=== PATIENT | male | born 1935 | race Caucasian/White ===

== ENCOUNTER → 2022-03-31 12:54 | Outpatient (BNVA) | payer MEDICARE, SELFPAY | PROVIDERS: Family Provider Physician Assistant Medical; PCP Family Medicine; Visit Provider Internal Medicine | DX: I25.10 Atherosclerotic heart disease of native coronary artery without angina pectoris (principal); I49.5 Sick sinus syndrome; E78.5 Hyperlipidemia, unspecified; Z87.891 Personal history of nicotine dependence; I10 Essential (primary) hypertension; Z95.0 Presence of cardiac pacemaker | CPT/HCPCS: 93005; 99204 ==

== ENCOUNTER → 2022-07-23 08:42 | Outpatient (BNVA) | payer MEDICARE, SELFPAY | PROVIDERS: Family Provider Physician Assistant Medical; PCP Family Medicine; Visit Provider Nurse Practitioner Family | DX: I25.10 Atherosclerotic heart disease of native coronary artery without angina pectoris (principal); I10 Essential (primary) hypertension; Z95.0 Presence of cardiac pacemaker; Z87.891 Personal history of nicotine dependence; Z79.82 Long term (current) use of aspirin | CPT/HCPCS: 99214 ==

== ENCOUNTER → 2022-08-26 15:10 | Outpatient (BNVA) | payer MEDICARE, SELFPAY | PROVIDERS: Family Provider Physician Assistant Medical; PCP Family Medicine; Visit Provider Internal Medicine | DX: I25.10 Atherosclerotic heart disease of native coronary artery without angina pectoris (principal); E78.5 Hyperlipidemia, unspecified; Z87.891 Personal history of nicotine dependence; Z95.0 Presence of cardiac pacemaker; I10 Essential (primary) hypertension | CPT/HCPCS: 99214 ==

== ENCOUNTER 2022-09-20 12:35 | Outpatient (CLI) | payer MEDICARE, SELFPAY ==
--- NOTE | 2022-09-20 13:00 | USCV_ITS ---
Sae Hoskins Age: 87 Gender: M : 1935 Exam Date: 09/20/2022 13:21 Ordering Phys: Jaswinder Hines M.D ([email or web address]) Technologist: Fang Sinha [place] [facility] [place]: cp, sob BP: 137 / 87 HR: 71 Rhythm: Sinus Technical Quality: Fair MEASUREMENTS (Male / Female) Normal Values 2D ECHO LV Diastolic Diameter PLAX 3.0 cm 4.2 - 5.9 / 3.9 - 5.3 cm LV Systolic Diameter PLAX 2.3 cm IVS Diastolic Thickness 1.1 cm 0.6 - 1.0 / 0.6 - 0.9 cm IVS Systolic Thickness 2.1 cm LVPW Diastolic Thickness 1.1 cm 0.6 - 1.0 / 0.6 - 0.9 cm LVPW Systolic Thickness 1.7 cm LV Ejection Fraction 2D Teich 46.6 % LV Ejection Fraction MOD 2C 74.9 % LV Ejection Fraction 2C AL 76.9 % LA Diameter 3.2 cm LA Width 3.8 cm LA Height 5.1 cm RA Width 3.5 cm RA Height 4.8 cm Aorta at Sinotubular Diameter 3.1 cm IVC Diameter 1.3 cm M-MODE Aortic Annulus Diameter 3.3 cm MV E Point Septal Separation 0.6 cm DOPPLER AV Peak Velocity 94.0 cm/s LVOT Peak Velocity 91.0 cm/s MV Peak Velocity 80.0 cm/s MV Area PHT 3.2 cm squared Mitral E to A Ratio 0.7 MV E' Velocity 30.0 cm/s Mitral E to MV E' Ratio 11.3 Mitral E to LV E' Lateral Ratio 9.3 Mitral E to LV E' Septal Ratio 14.2 TR Peak Velocity 81.7 cm/s TR Peak Gradient 2.7 mmHg Right Atrial Pressure 5.0 mmHg Pulmonary Artery Systolic Pressu 7.7 mmHg PV Peak Velocity 68.0 cm/s RV Acceleration Time 0.1 s RV Ejection Time 0.3 s RV AcT/ET 0.3 FINDINGS Left Ventricle Technically limited quality echocardiogram because of poor ultrasonic windows. LV systolic function is mildly reduced with EF of 40 to 45%. Mild global hypokinesis seen. Grade 1 diastolic dysfunction Right Ventricle Grossly normal Right Atrium Well-visualized Left Atrium Not well-visualized Mitral Valve Grossly normal. Mild mitral regurgitation. Aortic Valve Grossly normal. No significant stenosis or regurgitation is seen. Tricuspid Valve Grossly normal. Insufficient TR jet to calculate RVSP. Pulmonic Valve Not visualized Pericardium Normal Aorta Normal in size IVC Appears to be normal CONCLUSIONS LV systolic function is mildly reduced with EF of 40 to 45%. Grade 1 diastolic dysfunction Mild mitral regurgitation No comparison studies are available. Jaswinder Hines MD (Electronically Signed) Final Date: 25 September 2022 15:22 S
== END 2022-09-20 12:36 | disposition home or self-care (01) ==
PROVIDERS: PCP Family Medicine; Visit Provider Internal Medicine
DX: R06.02 Shortness of breath (principal); R07.9 Chest pain, unspecified; I34.0 Nonrheumatic mitral (valve) insufficiency; I51.89 Other ill-defined heart diseases
CPT/HCPCS: 93306

== ENCOUNTER → 2022-11-02 16:33 | Outpatient (BNVA) | payer MEDICARE, SELFPAY | PROVIDERS: PCP Family Medicine; Visit Provider Internal Medicine | DX: Z45.010 Encounter for checking and testing of cardiac pacemaker pulse generator [battery] (principal) | CPT/HCPCS: 93296 ==

== ENCOUNTER 2022-11-05 08:41 | Outpatient (CLI) | payer MEDICARE, SELFPAY ==
--- NOTE | 2022-11-05 | ECG_ITS ---
[facility] Test Date: 2022-11-05 Pat Name: Sae Hoskins Department: Room: Gender: Male [employer] Cook: : 1935 Requested By: Jsawinder Hines Order Number: [id number] Kevin MD: Jaswinder Hines M.D. Interpretive Statements NAME OF STUDY: LEXISCAN SESTAMIBI STRESS TEST INDICATION: [Chest Pain, ] Procedure: At the baseline, the blood pressure was 135/81 mmHg with a heart rate of 63 bpm. The electrocardiogram showed normal sinus rhythm, left bundle branch block with normal ST and T's. The Lexiscan was infused over a period of 20 seconds. A total of 0.4 mg of Lexiscan was infused. The stress phase was continued for a total of 5 minutes. Heart rate was at the end of stress phase was 67 bpm and a blood pressure of 89/53 mmHg. The EKG at the peak infusion revealed normal sinus rhythm with no significant ST-T wave changes. Sestamibi was injected 20 seconds after the Lexiscan infusion. Blood pressure at the end of recovery phase was 94/50 mmHg with a heart rate of 66 bpm. Conclusion: 1. Normal EKG response to Lexiscan infusion 2. No Lexiscan induced chest pain or cardiac arrhythmia. 3. Normal blood pressure and heart rate response. 4. Sestamibi/sestamibi perfusion scan pending; see separate report. Electronically Signed On 11-23-2022 11:07:30 CDT by Jaswinder Hines M.D. [id number]
[2022-11-05 09:31] VITALS: BMI 28.0
--- NOTE | 2022-11-05 09:34 | NMCV_ITS ---
NM lisette perf SPECT r/s* [id number] Sae Hoskins Age: 87 Gender: M : 1935 Exam Date: 11/05/2022 10:25 Ordering Phys: Jaswinder Hines M.D ([email or web address]) Technologist: ANNIE Dean Exam Location: [facility] [place] Indications: CHEST PAIN STRESS TEST [facility] IMAGE PROTOCOL Rest/Stress 1 Lexiscan Day Radiopharmaceutical Dose (mCi) Administration Site Administered by Rest: Tc-99m 10.9 IV ANNIE Dean Sestamibi Stress:Tc-99m 32.9 IV ANNIE Dean Sestamibi Rest: 05-Nov-2022 60 Discovery 630 Stress: 05-Nov-2022 30 Discovery 630 0.4mg Lexiscan. Supine position only as patient was unable to lay prone. SPECT RESULTS Technical Quality: Excellent Raw Data Analysis: Normal Image Corrections: No attenuation or motion correction applied Summed Stress Score: 1 Summed Rest Score: 2 Summed Difference Score: 1 PERFUSION FINDINGS There is a small sized, partially reversible perfusion defect noted in inferior wall. This is consistent with small sized prior infarct with minimal precious- infarct ischemia in RCA territory FUNCTIONAL RESULTS (calculated via Gated SPECT) Stress Image LV EF (%): 76 Stress EDV (mL):75 TID: 0.98 Stress ESV (mL):18 FUNCTIONAL FINDINGS: There is normal left ventricular systolic function. IMPRESSIONS 1. 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 LV systolic function is normal Jaswinder Hines MD (Electronically Signed) Final Date: 07 November 2022 11:58 S
[2022-11-05] MEDS: regadenoson 0.4 Mg/5 ml Syringe IVP (10:59)
[2022-11-05 11:23] VITALS: BP 94/50; PULSE 65
== END 2022-11-05 08:42 | disposition home or self-care (01) ==
PROVIDERS: PCP Family Medicine; Visit Provider Internal Medicine
DX: R07.9 Chest pain, unspecified (principal)
CPT/HCPCS: 36415; 78452; 93017; 96375; A9500; J2785

== ENCOUNTER → 2022-11-15 10:27 | Outpatient (BNVA) | payer MEDICARE, SELFPAY | PROVIDERS: PCP Family Medicine; Referring Provider Internal Medicine; Visit Provider Nurse Practitioner Family | DX: I25.10 Atherosclerotic heart disease of native coronary artery without angina pectoris (principal); I10 Essential (primary) hypertension; Z95.0 Presence of cardiac pacemaker; Z87.891 Personal history of nicotine dependence | CPT/HCPCS: 99214 ==

== ENCOUNTER → 2023-02-03 14:18 | Outpatient (BNVA) | payer MEDICARE, SELFPAY | PROVIDERS: PCP Family Medicine; Visit Provider Nurse Practitioner Family | DX: I50.9 Heart failure, unspecified (principal); Z95.0 Presence of cardiac pacemaker; Z95.5 Presence of coronary angioplasty implant and graft | CPT/HCPCS: 36415; 71046; 80048; 83880; 99214 ==

== ENCOUNTER → 2023-03-03 14:30 | Outpatient (BNVA) | payer MEDICARE, SELFPAY | PROVIDERS: PCP Family Medicine; Visit Provider Nurse Practitioner Family | DX: I11.0 Hypertensive heart disease with heart failure (principal); I50.41 Acute combined systolic (congestive) and diastolic (congestive) heart failure; I25.10 Atherosclerotic heart disease of native coronary artery without angina pectoris; Z87.891 Personal history of nicotine dependence | CPT/HCPCS: 36415; 80048; 83880; 99214 ==

== ENCOUNTER → 2023-03-14 15:07 | Outpatient (BNVA) | payer MEDICARE, SELFPAY | PROVIDERS: PCP Family Medicine; Visit Provider Internal Medicine | DX: I49.5 Sick sinus syndrome (principal); I25.10 Atherosclerotic heart disease of native coronary artery without angina pectoris; E78.5 Hyperlipidemia, unspecified; Z87.891 Personal history of nicotine dependence; Z79.82 Long term (current) use of aspirin; I10 Essential (primary) hypertension | CPT/HCPCS: 99214 ==

== ENCOUNTER → 2023-06-13 10:48 | Outpatient (BNVA) | payer MEDICARE, SELFPAY | PROVIDERS: PCP Family Medicine; Visit Provider Nurse Practitioner Family | DX: I25.10 Atherosclerotic heart disease of native coronary artery without angina pectoris (principal); I10 Essential (primary) hypertension; Z95.0 Presence of cardiac pacemaker; Z87.891 Personal history of nicotine dependence | CPT/HCPCS: 99214 ==

== ENCOUNTER 2023-08-01 09:34 | Emergency (ER) | payer MEDICARE, SELFPAY ==
[2023-08-01] VITALS (44 sets, daily range): BP systolic 92–152; BP diastolic 58–82; PULSE 60–75; RESP 15–28; TEMP 36.9; O2SAT 89–95
--- NOTE | 2023-08-01 09:36 | ED_ITS ---
HPI - Fall General: Stated Complaint: Fall/ Foot Pain Time Seen by Provider: 08/01/23 09:36 COUNTS INCLUDE 234 BEDS AT THE [facility] ED PFSH: Medical History Pacemaker Sick sinus syndrome HTN (hypertension) CAD (coronary artery disease) BPH (benign prostatic hyperplasia) Prostate cancer Hyperlipemia Social History Smoking and tobacco/nicotine status: former use of tobacco/nicotine Alcohol intake: former Discharge Plan Discharge Condition: Stable Prescriptions: No Action fluticasone propionate 50 mcg/actuation spray,suspension 2 spray intranasal DAILY Rx Instructions: administer into each nostril gabapentin 300 mg capsule 300 mg PO BID tamsulosin [Flomax] 0.4 mg capsule 0.4 mg PO DAILY simvastatin [Zocor] 10 mg tablet 10 mg PO DAILY enalapril maleate [Vasotec] 2.5 mg tablet 2.5 mg PO DAILY Hold Instructions: hypotension sertraline [Zoloft] 25 mg tablet 25 mg PO DAILY memantine [Namenda] 5 mg tablet 5 mg PO QAM montelukast [Singulair] 10 mg tablet 10 mg PO DAILY esomeprazole magnesium [Nexium] 40 mg capsule,delayed release(DR/EC) 40 mg PO DAILY timolol maleate 0.5 % drops 1 drp ophthalmic (eye) BID acetaminophen [Tylenol Extra Strength] 500 mg tablet 500 mg PO Q6H PRN bismuth subsalicylate [Pepto-Bismol] 262 mg tablet,chewable 2 tab PO QID cetirizine [Zyrtec] 10 mg tablet 10 mg PO DAILY PRN ibuprofen 200 mg tablet 200 mg PO Q6H PRN brimonidine 0.2 % drops 1 drp ophthalmic (eye) BID Rx Instructions: administer approximately 8 hours apart nitroglycerin 0.4 mg tablet, sublingual 0.4 mg sublingual Q5M PRN Rx Instructions: do not exceed 3 doses per episode multivitamin Tablet 1 tab PO DAILY aspirin 81 mg tablet,delayed release (DR/EC) 81 mg PO DIRECTED Rx Instructions: Every other day metoprolol tartrate 25 mg tablet 12.5 mg PO BID furosemide [Lasix] 20 mg tablet 20 mg PO DIRECTED Rx Instructions: 1 tab every other day Referrals: Harrison Forman [Primary Care Provider] - Coding Level of Care Code ED Museum Tour Guide for Chg Valente
--- NOTE | 2023-08-01 09:48 | ECG_ITS ---
[facility] Test Date: 2023-08-01 Pat Name: Sae Hoskins Department: Room: Gender: Male Utility Driver: : 1935 Requested By: Elmira Marin Order Number: [id number] Brown MD: Agatha Crowe M.D. Measurements Intervals [place] Rate: 62 P: 102 NE: 177 QRS: 23 QRSD: 170 T: 71 QT: 464 QTc: 475 Interpretive Statements ELECTRONIC ATRIAL PACEMAKER ELECTRONIC VENTRICULAR PACEMAKER ABNORMAL RHYTHM ECG No previous ECG available for comparison Electronically Signed On 08-01-2023 22:52:37 CDT by Agatha Crowe M.D. [email or web address] d/b/a [email or web address] doctors [email or web address]/store/OM/[id number]
--- NOTE | 2023-08-01 09:48 | XR_ITS ---
WS: [id number] XR foot LT min 3V* [id number] REASON FOR EXAM: injury FINDINGS: Significant decrease in bone density. Moderate joint space narrowing with subchondral sclerosis and PIP and DIP joints. There is a deformity of the distal most fifth metatarsal which most likely represents a healing fract ure, nondisplaced. XR/XR foot LT min 3V* [id number] IMPRESSION: Probable healing fracture left fifth metatarsal as above.
--- NOTE | 2023-08-01 09:48 | XR_ITS ---
WS: [id number] XR chest 1V portable [id number] REASON FOR EXAM: syncope FINDINGS: The chest appears unchanged compared to 02/03/2023. Cardiac device over the left chest with trans the subclavian vein leads to the right atrium and right ventricle. Mild tortuosity of the thoracic aorta. Moderate cardiomegaly. Calcified granulomatous disease in both hemithoraces. No acute pulmonary parenchymal or pleural abnormality is identified. Moderate degenerative spondylosi s in the mid and lower thoracic spine. Old posttraumatic change in the left shoulder joint. 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 XR/XR chest 1V portable [id number] IMPRESSION: Stable chest without acute abnormality.
--- NOTE | 2023-08-01 09:49 | ED_ITS ---
HPI - General Adult 2 General: Chief complaint: Extremity Injury, Lower Stated complaint: Fall/ Foot Pain Time Seen by Provider: 08/01/23 09:36 Source: patient and family () Mode of arrival: EMS Limitations: other (dementia) History of Present Illness: Patient is an 87-year-old male with a history of CHF, HTN, dementia here via EMS for evaluation of a left foot injury. History is difficult to obtain from patient given his dementia but arrives shortly after his arrival to provide history. She states over the past 2 weeks or so when patient first wakes up in the morning he will have lightheadedness/dizziness and sometimes will blackout for a few seconds after standing. states he is fine the remainder of the day. She states yesterday he got lightheaded and dizzy and fell to his knees and injured his left foot as the noticed blood coming from his pinky toe. She states this morning when she tried to get him up he would not put pressure on the foot thus prompting her to call EMS. They did have an appointment with primary care this morning for evaluation of the lightheadedness/dizziness. Onset (ago): day(s) (yesterday-injured foot) Location: lower extremity Severity: moderate Pain Consistency: constant Relieving factors: immobilization Exacerbating factors: other (palpation, walking) Associated symptoms: Reports other (lightheadedness/syncope with standing first thing in the morning) Treatments prior to arrival: none Review of Systems 2 General: Reports: ROS unobtainable due to mental status (patient has chronic dementia) PFS ED 2 PFSH: Medical History Pacemaker Sick sinus syndrome HTN (hypertension) CAD (coronary artery disease) BPH (benign prostatic hyperplasia) Prostate cancer Hyperlipemia Social History Smoking and tobacco/nicotine status: former use of tobacco/nicotine Alcohol intake: former Physical Exam 2 Const: COMMON NORMALS: no acute distress, average body habitus, healthy appearing, alert and well nourished EXAM LIMITATIONS: altered mental status (chronic dementia- states is at mental baseline) HENMT: COMMON NORMALS: normocephalic and atraumatic HEAD & SCALP: normal to inspection, normocephalic and atraumatic FACE & SINUS: normal facial exam and face symmetric Resp: COMMON NORMALS: normal respiratory effort and clear to auscultation bilaterally AUSCULTATION: clear to auscultation bilaterally Cardio: COMMON NORMALS: regular rate and regular rhythm RATE: regular rate RHYTHM: regular rhythm Back/Pelvis: COMMON NORMALS: thoracic and lumbar spine normal to inspection Extremity: COMMON NORMALS: full ROM, capillary refill normal, no joint enlargement and no calf tenderness GENERAL: Yes normal exam except as noted LEFT LOWER EXTREMITY: Yes foot & digits (edema/ecchymosis dorsal L foot) Left foot and digits: Yes inspection (small laceration plantar L 5th digit), Yes ROM (normal) and Yes neurovascular exam (normal) Neuro: COMMON NORMALS: moves all extremities, no focal motor deficits and no sensory deficits noted SENSORIUM/ORIENTATION: Yes alert Course 2 Vital Signs: Vital signs: Vital Signs Temperature 98.4 F 08/01/23 09:36 Pulse Rate 62 08/01/23 13:15 Respiratory Rate 17 08/01/23 13:15 Blood Pressure 129/67 08/01/23 13:30 Pulse Oximetry 95 08/01/23 13:15 Oxygen Delivery Me thod Room Air 08/01/23 10:14 [facility] - General Adult Medical Decision Making Patient is an 87-year-old male who presents to the ED today here with his for a main complaint of an injury to his left foot that he sustained yesterday. On exam he has a small laceration to the crease of the plantar aspect of his left pinky toe. This wound is now 24 hours old so decision was made to leave open. With the natural flexion of the toe it provides adequate wound closure on its own. Wound was cleaned and dressed. XR reading a probable healing fracture although history would suggest this is acute. Will place on antibiotics and he will follow-up with podiatry. Tetanus was updated. states he has been having lightheadedness/dizziness/presyncopal episodes with standing mainly in the mornings over the past 2 to 3 weeks. He had orthostatic hypotension here. We discussed the rule of fives . Recommend he follow-up with his primary care provider to see if they need to adjust any of his hypertensive medications. Remainder of workup is nonactionable. Lab Data 08/01/23 10:55 08/01/23 10:55 Radiology Impressions Chest X-Ray 08/01/23 09:48 IMPRESSION: Stable chest without acute abnormality. Foot X-Ray 08/01/23 09:48 IMPRESSION: Probable healing fracture left fifth metatarsal as above. Laboratory Results WBC 8.95 10^3/uL (3.29-11.43) 08/01/23 10:55 RBC 4.75 10^6/uL (3.85-5.65) 08/01/23 10:55 Hgb 15.40 g/dL (11.27-16.99) 08/01/23 10:55 Hct 44.2 % (37-53) 08/01/23 10:55 MCV 93.1 fl (82-101) 08/01/23 10:55 MCH 32.4 pg (27-33) 08/01/23 10:55 MCHC 34.8 g/dL (30-55) 08/01/23 10:55 RDW 13.8 % (12.1-15.1) 08/01/23 10:55 Plt Count 108 10^3/cmm (157-399) L 08/01/23 10:55 MPV 13.8 fL (7.4-10.4) H 08/01/23 10:55 Neut % (Auto) 68.0 % 08/01/23 10:55 Lymph % (Auto) 16.4 % 08/01/23 10:55 [place] % (Auto) 13.3 % 08/01/23 10:55 Eos % (Auto) 1.6 % 08/01/23 10:55 Baso % (Auto) 0.4 % 08/01/23 10:55 Neut # (Auto) 6.08 10^3/uL (1.8-7.7) 08/01/23 10:55 Lymph # (Auto) 1.5 10^3/uL (0.8-4.8) 08/01/23 10:55 [place] # (Auto) 1.2 10^3/uL (0.2-0.9) H 08/01/23 10:55 Eos # (Auto) 0.1 10^3/uL (0.0-0.8) 08/01/23 10:55 Baso # (Auto) 0.0 10^3/uL (0.0-0.1) 08/01/23 10:55 Nucleated RBC % (auto) 0 % 08/01/23 10:55 Nucleated RBCs # 0.0 /100WBC 08/01/23 10:55 Sodium 141 mmol/L (136-145) 08/01/23 10:55 Potassium 4.8 mmol/L (3.5-5.1) 08/01/23 10:55 Chloride 104 mmol/L (98-107) 08/01/23 10:55 Carbon Dioxide 26 mmol/L (22-29) 08/01/23 10:55 Anion Gap 15.8 (5-19) 08/01/23 10:55 BUN 18 mg/dL (8-23) 08/01/23 10:55 Creatinine 1.2 mg/dL (0.7-1.2) 08/01/23 10:55 GFR Calculation Not Reportable 08/01/23 10:55 Glucose 130 mg/dL (65-115) H 08/01/23 10:55 Calculated Osmolality 296 mOsm/kg (285-295) H 08/01/23 10:55 Calcium 9.4 mg/dL (8.5-10.5) 08/01/23 10:55 Total Bilirubin 1.5 mg/dL (0.15-1.2) H 08/01/23 10:55 AST 19 U/L (0-40) 08/01/23 10:55 ALT 10 U/L (0-41) 08/01/23 10:55 Alkaline Phosphatase 123 U/L (40-130) 08/01/23 10:55 NT-Pro-B Natriuret Pep 349 pg/mL (0-450) 08/01/23 10:55 Total Protein 5.5 g/dL (6.6-8.7) L 08/01/23 10:55 Albumin 3.6 g/dL (3.5-5.2) 08/01/23 10:55 Globulin 1.9 g/dL (1.3-4.6) 08/01/23 10:55 Urine Color Yellow (Yellow) 08/01/23 10:43 Urine Appearance Clear (CLEAR) 08/01/23 10:43 Urine pH 7 (5-7) 08/01/23 10:43 Ur Specific [place] 1.010 (1.005-1.030) 08/01/23 10:43 Urine Protein Neg (Negative) 08/01/23 10:43 Urine Glucose (UA) Norm (Normal) 08/01/23 10:43 Urine Ketones Negative (Negative) 08/01/23 10:43 Urine Blood Neg (Negative) 08/01/23 10:43 Urine Nitrate Negative (Negative) 08/01/23 10:43 Urine Bilirubin Neg (Negative) 08/01/23 10:43 Urine Urobilinogen Neg mg/dL (Negative) 08/01/23 10:43 Ur Leukocyte Esterase Negative (Negative) 08/01/23 10:43 All radiology interpretation(s) finalized by discharge Discharge Plan Discharge Patient Disposition: Home Clinical Impression: Fracture of distal phalanx of toe of left foot, Orthostatic hypotension Condition: Stable Prescriptions: New cephalexin 500 mg capsule 500 mg PO Q6H 7 Days Qty: 28 0RF No Action fluticasone propionate 50 mcg/actuation spray,suspension 2 spray intranasal DAILY Rx Instructions: administer into each nostril gabapentin 300 mg capsule 300 mg PO BID tamsulosin [Flomax] 0.4 mg capsule 0.4 mg PO DAILY simvastatin [Zocor] 10 mg tablet 10 mg PO QPM montelukast [Singulair] 10 mg tablet 10 mg PO QPM esomeprazole magnesium [Nexium] 40 mg capsule,delayed release(DR/EC) 40 mg PO DAILY timolol maleate 0.5 % drops 1 drp ophthalmic (eye) BID cetirizine [Zyrtec] 10 mg tablet 10 mg PO DAILY PRN (Reason: allergies) brimonidine 0.2 % drops 1 drp ophthalmic (eye) BID Rx Instructions: administer approximately 8 hours apart nitroglycerin 0.4 mg tablet, sublingual 0.4 mg sublingual Q5M PRN (Reason: Chest Pain) Rx Instructions: do not exceed 3 doses per episode multivitamin Tablet 1 tab PO QPM aspirin 81 mg tablet,delayed release (DR/EC) 81 mg PO DIRECTED Rx Instructions: Every other day metoprolol tartrate 25 mg tablet 12.5 mg PO BID furosemide [Lasix] 20 mg tablet See Rx Instructions .ROUTE .COMPLEX Rx Instructions: TAKE 1 TABLET BY MOUTH TWICE DAILY AND NEEDED. metformin 500 mg tablet extended release 24 hr 500 mg PO DAILY sertraline 50 mg tablet 50 mg PO DAILY memantine 10 mg tablet 10 mg PO BID Discharge Orders: Discharge ED (Routine); Ordered 08/01/23 Ordered By: Elmira Marin Referrals: Harrison Forman [Primary Care Provider] - Patient Instructions: Syncope (DC), Hypotension (DC) Activity Restrictions/Additional Instructions: As we discussed keep wound underneath the toe clean with warm soapy water and monitor for signs of infection. I have called antibiotics into your pharmacy of choice. Please start these immediately. We will have him follow-up with podiatry. He needs to stay in his surgical shoe is much as possible during ambulation. We discussed the rule of 5s to help with his positional low blood pressure. When he goes from a lying to seated position he needs to stay like this for approximately 5 minutes to allow blood pressure to adjust. When he goes from a seated to standing position he again needs to stay upright for approximately 5 minutes before he starts to ambulate. This can help prevent falls/lightheadedness or dizziness. Please discuss with his primary care as they may need to adjust some of his blood pressure medication. Coding Level of Care Code ED Grinder Setup Operator for Gus Victor
[2023-08-01 10:50] LABS: Add Urine Microscopic? NO; Charge for UA Resulting for Rev
[2023-08-01 10:53] LABS: Bilirubin Urine Neg (Negative); Blood Urine Neg (Negative); Glucose Urine UA Norm (Normal); Ketones Urine Negative (Negative); Leukocyte Esterase Urine Negative (Negative); Nitrate Urine Negative (Negative); Protein Urine Neg (Negative); Urine Appearance Clear (CLEAR); Urine Color Yellow (Yellow); Urobilinogen Urine Neg (Negative); pH Urine 7 (5-7)
[2023-08-01 11:04] LABS: Basophils % 0.4 %; Eosinophils # 0.1 10^3/uL (0.0-0.8); Eosinophils % 1.6 %; Hematocrit 44.2 % (37-53); Lymphocytes # 1.5 10^3/uL (0.8-4.8); Lymphocytes % 16.4 %; Mean Corpuscular HGB Conc 34.8 g/dL (30-55); Mean Corpuscular Hemoglobin 32.4 pg (27-33); Mean Corpuscular Volume 93.1 fl (82-101); Mean Platelet Volume 13.8 fL (7.4-10.4); Monocytes # 1.2 10^3/uL (0.2-0.9); Monocytes % 13.3 %; Neutrophils # 6.08 10^3/uL (1.8-7.7); Nucleated Red Blood Cells % 0 %; Platelet Count 108 10^3/cmm (157-399); Red Blood Count 4.75 10^6/uL (3.85-5.65); Red Cell Distribution Width 13.8 % (12.1-15.1); White Blood Count 8.95 10^3/uL (3.29-11.43)
[2023-08-01 11:19] LABS: Slide Review Slide Review Perform
--- NOTE | 2023-08-01 11:39 | PC.NURSE ---
WHILE ATTEMPTING TO PREFORM ORTHOSTATIC VITAL SIGNS AND ASSISTING THE PATIENT TO STAND UP, PT BEGAN TO COLLAPSE AND HAD POSITIVE LOC. THIS NURSE WAS ABLE TO LAY PT DOWN BACK ONTO STRETCHER WITH NO INCIDENT. PT BECAME ALERT APPROXIMATELY 30 SECONDS LATER. UNABLE TO OBTAIN BP AT THE TIME BUT WAS 142/75 A FEW MOMENTS LATER. PT PULSE WAS 62 AND O2 ON RA WAS 95%. KATELYN GUY NOTIFIED.
[2023-08-01] MEDS: tetanus-dipt-pertussis 0.5 mL SDV IM (11:52)
[2023-08-01 12:01] LABS: Alanine Aminotransferase 10 U/L (0-41); Albumin Level 3.6 g/dL (3.5-5.2); Alkaline Phosphatase 123 U/L (40-130); Blood Urea Nitrogen 18 mg/dL (8-23); Calcium 9.4 mg/dL (8.5-10.5); Carbon Dioxide 26 mmol/L (22-29); Chloride 104 mmol/L (98-107); Creatinine Clr Calc Pharmacy 52.8994; Globulin 1.9 g/dL (1.3-4.6); Glucose 130 mg/dL (65-115); NT Pro B Type Natriuretic Pept 349 pg/mL (0-450); Osmolality Calculated 296 mOsm/kg (285-295); Sodium 141 mmol/L (136-145); Total Bilirubin 1.5 mg/dL (0.15-1.2); Total Protein 5.5 g/dL (6.6-8.7)
[2023-08-01 12:12] LABS: Anion Gap 15.8 (5-19); Aspartate Amino Transferase 19 U/L (0-40); Potassium 4.8 mmol/L (3.5-5.1)
--- NOTE | 2023-08-01 12:33 | DCPLANNER ---
Message sent to podiatry for a follow up on 5th toe fracture
== END 2023-08-01 13:25 | disposition home or self-care (01) ==
PROVIDERS: Emergency Provider Physician Assistant; PCP Family Medicine
DX: I95.1 Orthostatic hypotension (principal); S92.532A Displaced fracture of distal phalanx of left lesser toe(s), initial encounter for closed fracture; Z79.82 Long term (current) use of aspirin; Z79.84 Long term (current) use of oral hypoglycemic drugs; Z95.0 Presence of cardiac pacemaker; I10 Essential (primary) hypertension; I25.10 Atherosclerotic heart disease of native coronary artery without angina pectoris; E78.5 Hyperlipidemia, unspecified; Z85.46 Personal history of malignant neoplasm of prostate; Z87.891 Personal history of nicotine dependence; Z23 Encounter for immunization; S91.115A Laceration without foreign body of left lesser toe(s) without damage to nail, initial encounter; F03.90 Unspecified dementia, unspecified severity, without behavioral disturbance, psychotic disturbance, mood disturbance, and anxiety; W18.39XA Other fall on same level, initial encounter
CPT/HCPCS: 36415; 71045; 73630; 80053; 81003; 83880; 85025; 90715; 93005; 99285; 99291

== ENCOUNTER 2023-08-03 10:15 | Outpatient (CLI) | payer MEDICARE, SELFPAY ==
--- NOTE | 2023-08-03 10:45 | USCV_ITS ---
Sae Hoskins Age: 87 Gender: M : 1935 Exam Date: 08/03/2023 10:25 Ordering Phys: Jaswinder Hines M.D ([email or web address]) Technologist: [place] [facility] [place]: mr BP: 130 / 74 HR: 60 Rhythm: Sinus Technical Quality: Adequate MEASUREMENTS (Male / Female) Normal Values 2D ECHO LV Diastolic Diameter PLAX 3.6 cm 4.2 - 5.9 / 3.9 - 5.3 cm IVS Diastolic Thickness 1.1 cm 0.6 - 1.0 / 0.6 - 0.9 cm IVS Systolic Thickness 1.3 cm LVPW Diastolic Thickness 1.1 cm 0.6 - 1.0 / 0.6 - 0.9 cm LVPW Systolic Thickness 1.3 cm LVOT Diameter 1.7 cm LV Ejection Fraction 2D Teich 50.9 % LV Ejection Fraction MOD 2C 52.3 % LV Ejection Fraction 2C AL 53.4 % LA Diameter 3.1 cm RA Systolic Volume 4C AL 72.8 ml RA Systolic Volume 4C MOD 69.6 ml DOPPLER LVOT Peak Velocity 94.0 cm/s AV Area Cont Eq vti 2.5 cm squared AV Area Cont Eq pk 1.9 cm squared MV Area PHT 2.8 cm squared TR Peak Velocity 128.0 cm/s TR Peak Gradient 6.6 mmHg TV Peak E Velocity 81.0 cm/s PV Peak Velocity 85.0 cm/s FINDINGS Left Ventricle Left ventricle is normal size. LV systolic function is normal with EF of 50 to 55%. No regional wall motion abnormalities are seen. Right Ventricle Normal in size and function Right Atrium Normal in size Left Atrium Normal in size Mitral Valve Structurally normal mitral valve. Mild mitral regurgitation. Aortic Valve Aortic valve is thickened No significant stenosis or regurgitation. Tricuspid Valve Insufficient TR jet to calculate RVSP Pulmonic Valve Not well visualized Pericardium Normal Aorta Normal in size IVC Appears to be normal CONCLUSIONS LV systolic function is normal with EF of 50-55% Mild mitral regurgitation Compared to prior echocardiogram from 2022, LV systolic function has improved and is normal now. Jaswinder Hines MD (Electronically Signed) Final Date: 14 Aug 2023 11:52 S
== END 2023-08-03 10:16 | disposition home or self-care (01) ==
LOC: RAD 10:16
PROVIDERS: PCP Family Medicine; Visit Provider Internal Medicine
DX: I34.0 Nonrheumatic mitral (valve) insufficiency (principal); S92.352A Displaced fracture of fifth metatarsal bone, left foot, initial encounter for closed fracture; S91.312A Laceration without foreign body, left foot, initial encounter; W18.11XA Fall from or off toilet without subsequent striking against object, initial encounter
CPT/HCPCS: 93306; 99203

== ENCOUNTER → 2023-08-11 14:34 | Outpatient (BNVA) | payer MEDICARE, SELFPAY | PROVIDERS: PCP Family Medicine; Visit Provider Podiatrist Foot & Ankle Surgery | DX: S92.352D Displaced fracture of fifth metatarsal bone, left foot, subsequent encounter for fracture with routine healing; E11.9 Type 2 diabetes mellitus without complications; Z79.84 Long term (current) use of oral hypoglycemic drugs; X58.XXXD Exposure to other specified factors, subsequent encounter | CPT/HCPCS: 73630; 99213 ==

== ENCOUNTER → 2023-09-13 14:09 | Outpatient (BNVA) | payer MEDICARE, SELFPAY | PROVIDERS: PCP Family Medicine; Visit Provider Internal Medicine | DX: Z95.0 Presence of cardiac pacemaker (principal); I25.10 Atherosclerotic heart disease of native coronary artery without angina pectoris; E78.5 Hyperlipidemia, unspecified; I49.5 Sick sinus syndrome; Z87.891 Personal history of nicotine dependence; I10 Essential (primary) hypertension | CPT/HCPCS: 99214 ==

== ENCOUNTER → 2024-07-13 08:18 | Outpatient (BNVA) | payer MEDICARE, SELFPAY | PROVIDERS: PCP Family Medicine; Visit Provider Nurse Practitioner Family | DX: I25.10 Atherosclerotic heart disease of native coronary artery without angina pectoris (principal); E78.5 Hyperlipidemia, unspecified; I10 Essential (primary) hypertension; F03.90 Unspecified dementia, unspecified severity, without behavioral disturbance, psychotic disturbance, mood disturbance, and anxiety; Z95.0 Presence of cardiac pacemaker; Z87.891 Personal history of nicotine dependence; Z79.82 Long term (current) use of aspirin | CPT/HCPCS: 99214 ==